=== PATIENT | male | born 1990 | race African-American/Black ===

== ENCOUNTER 2022-07-03 14:41 | Emergency (ER) | payer BC, OTHER ==
[2022-07-03 14:47] VITALS: BP 163/106; PULSE 86; RESP 18; TEMP 97.7; BMI 36.9
[2022-07-03] MEDS ORDERED: KETOROLAC TROMETHAMINE 30 MG/1 ML VIAL IM ONE (15:27)
[2022-07-03] MEDS ORDERED: AMOXICILLIN 500 MG CAPSULE (FP) PO ONE (15:27)
[2022-07-03] MEDS ORDERED: ACETAMINOPHEN WITH CODEINE 300MG/30MG TABLET PO ONE (15:28)
[2022-07-03] MEDS ORDERED: AMOXICILLIN 250 MG CAPSULE ONE (15:48)
[2022-07-03] MEDS ORDERED: KETOROLAC TROMETHAMINE 30 MG/1 ML VIAL ONE (15:48)
[2022-07-03] MEDS ORDERED: ACETAMINOPHEN WITH CODEINE 300MG/30MG TABLET ONE (15:49)
== END 2022-07-03 16:35 | disposition home or self-care (01) ==
LOC: JERFT 14:41 → JER 14:41 → JERFT 16:35
PROC: 3E023GC Introduction of Other Therapeutic Substance into Muscle, Percutaneous Approach (ICD-10-PCS; principal; 2022-07-03)
DX: K08.89 Other specified disorders of teeth and supporting structures (principal)
CPT/HCPCS: 99284-25

== ENCOUNTER 2023-11-20 12:56 | Inpatient (IN) | payer OTHER ==
[2023-11-20] MEDS ORDERED: ACETAMINOPHEN INJECTION 100 ML IVPB ONE ×2 (14:41→20:39)
[2023-11-20 14:44] LABS: BASO % 0.3 % (0-2.0); EOS % 1.6 % (0-4.5); HEMATOCRIT 46.9 % (35.4-49); LYMPH % 13.8 % (8-40); MCH 28.9 pg (25.7-33.7); MEAN CELL VOLUME 85.1 fl (80-96); MEAN PLT VOLUME 7.5 fl (7.5-11.1); MONO % 7.1 % (3.8-10.2); NEUT % 77.2 % (42.8-82.8); PLATELET COUNT 206 10^3/uL (134-434); RBC 5.51 M/mm3 (4.00-5.60); RDW 13.6 % (11.9-15.9); WHITE BLOOD COUNT 7.7 K/mm3 (4.0-10.0)
[2023-11-20 14:45] LABS: INR 1.06 (0.83-1.09); PROTHROMBIN TIME (PATIENT) 12.3 SEC (9.7-13.0)
[2023-11-20] MEDS: morphine CARPU-JECT 2 MG/1 ML DISP.SYRIN IVPUSH ONE (14:45)
[2023-11-20 15:00] LABS: POTASSIUM 4.1 mmol/L (3.5-5.1)
[2023-11-20 15:03] LABS: ALBUMIN 4.2 g/dl (3.4-5.0); CALCIUM 9.4 mg/dL (8.5-10.1)
[2023-11-20 15:07] LABS: CREATININE 1.2 mg/dL (0.55-1.3)
[2023-11-20 15:09] LABS: BILIRUBIN,TOTAL 0.8 mg/dL (0.2-1); TOT PROT 8.1 g/dl (6.4-8.2)
[2023-11-20 15:22] LABS: ERYTHROCYTE SEDIMENTATION RATE 6 mm/hr (0-10)
[2023-11-20] MEDS ORDERED: PIPERACILLIN/TAZOB 4.5 GM 4.5 GM/100 ML BAG IVPB ONE (16:19)
[2023-11-20] MEDS: PIPERACILLIN/TAZOB 4.5 GM 4.5 GM in DEXTROSE 5%-WATER 100 ML IVPB ONE (16:47)
[2023-11-20] MEDS ORDERED: VANCOMYCIN 1 GRAM (PRE-DOCKED) 1,000 MG/250 ML BAG IVPB ONE (17:18)
[2023-11-20] MEDS: VANCOMYCIN 1,000 MG in DEXTROSE 5%-WATER - 250 ML IVPB ONE (17:27)
[2023-11-20] MEDS ORDERED: ACETAMINOPHEN 325 MG TABLET (FP) PO PRN (19:09)
[2023-11-20] MEDS: ACETAMINOPHEN 1000 MG/100 ML BAG IVPB ONE (20:59)
[2023-11-21 07:32] LABS: HEMATOCRIT 44.7 % (35.4-49); HEMOGLOBIN 15.3 GM/dL (11.7-16.9); MCHC 34.1 g/dl (32.0-35.9); MEAN CELL VOLUME 85.1 fl (80-96); PLATELET COUNT 186 10^3/uL (134-434); RBC 5.25 M/mm3 (4.00-5.60); RDW 13.6 % (11.9-15.9); WHITE BLOOD COUNT 6.2 K/mm3 (4.0-10.0)
[2023-11-21 07:44] LABS: POTASSIUM 3.9 mmol/L (3.5-5.1)
[2023-11-21 07:45] LABS: CALCIUM 8.7 mg/dL (8.5-10.1)
[2023-11-21 07:46] LABS: BLOOD UREA NITROGEN 15.7 mg/dL (7-18); MAGNESIUM 2.1 mg/dL (1.8-2.4)
[2023-11-21 07:49] LABS: CREATININE 1.1 mg/dL (0.55-1.3); PHOSPHOROUS 3.9 mg/dL (2.5-4.9); URIC ACID 4.6 mg/dL (2.6-7.2)
[2023-11-21 08:34] LABS: ALBUMIN 3.8 g/dl (3.4-5.0)
[2023-11-21 08:36] LABS: BILIRUBIN,DIRECT 0.1 mg/dL (0.0-0.2)
[2023-11-21 08:38] LABS: BILIRUBIN,TOTAL 0.8 mg/dL (0.2-1); TOT PROT 7.3 g/dl (6.4-8.2)
[2023-11-21 10:01] VITALS: RESP 18
[2023-11-21] MEDS: DOXYCYCLINE HYCLATE 100 MG CAPSULE PO SCH (11:00)
[2023-11-21] MEDS: KETOROLAC TROMETHAMINE 15 MG/ML VIAL IVPUSH PRN (12:09)
[2023-11-21 13:42] VITALS: BMI 38.2
[2023-11-21] MEDS: NYSTATIN 100,000 UNIT/GM TOPICAL CREAM 15 GM TUBE TP SCH (14:00)
[2023-11-21] MEDS: CEFTRIAXONE 2 GM in DEXTROSE 5%-WATER 100 ML IVPB SCH (16:29)
[2023-11-21] MEDS: ENOXAPARIN NA (PORCINE) 40 MG/0.4 ML DISP.SYRIN SQ SCH (16:30)
[2023-11-21] MEDS: VANCOMYCIN PREMIX 1.5 GM 1,500 MG/300 ML BAG IVPB SCH (16:30)
[2023-11-22 09:08] LABS: POTASSIUM 4.2 mmol/L (3.5-5.1)
[2023-11-22 09:10] LABS: CALCIUM 9.3 mg/dL (8.5-10.1)
[2023-11-22 09:11] LABS: ALBUMIN 3.7 g/dl (3.4-5.0); BLOOD UREA NITROGEN 18.8 mg/dL (7-18)
[2023-11-22 09:14] LABS: BILIRUBIN,TOTAL 1.1 mg/dL (0.2-1); CREATININE 1.2 mg/dL (0.55-1.3); TOT PROT 7.4 g/dl (6.4-8.2)
[2023-11-22 09:15] LABS: HEMATOCRIT 46.5 % (35.4-49); HEMOGLOBIN 15.8 GM/dL (11.7-16.9); MCH 28.9 pg (25.7-33.7); MEAN CELL VOLUME 84.9 fl (80-96); MEAN PLT VOLUME 7.8 fl (7.5-11.1); PLATELET COUNT 192 10^3/uL (134-434); RBC 5.47 M/mm3 (4.00-5.60); RDW 13.4 % (11.9-15.9); WHITE BLOOD COUNT 5.7 K/mm3 (4.0-10.0)
[2023-11-22 14:15] LABS: BILIRUBIN,DIRECT 0.2 mg/dL (0.0-0.2)
[2023-11-23 09:16] LABS: HEMATOCRIT 45.3 % (35.4-49); HEMOGLOBIN 15.2 GM/dL (11.7-16.9); MCH 28.5 pg (25.7-33.7); MCHC 33.5 g/dl (32.0-35.9); MEAN CELL VOLUME 85.1 fl (80-96); MEAN PLT VOLUME 7.8 fl (7.5-11.1); PLATELET COUNT 186 10^3/uL (134-434); RBC 5.32 M/mm3 (4.00-5.60); RDW 13.2 % (11.9-15.9)
[2023-11-23 09:46] LABS: ALBUMIN 3.6 g/dl (3.4-5.0); BLOOD UREA NITROGEN 20.8 mg/dL (7-18); MAGNESIUM 2.3 mg/dL (1.8-2.4)
[2023-11-23 09:48] LABS: CREATININE 1.2 mg/dL (0.55-1.3)
[2023-11-23 09:51] LABS: BILIRUBIN,TOTAL 1.1 mg/dL (0.2-1); TOT PROT 7.4 g/dl (6.4-8.2)
[2023-11-24 09:15] LABS: HEMATOCRIT 48.5 % (35.4-49); MCH 28.2 pg (25.7-33.7); MCHC 32.9 g/dl (32.0-35.9); MEAN CELL VOLUME 85.6 fl (80-96); MEAN PLT VOLUME 7.6 fl (7.5-11.1); PLATELET COUNT 208 10^3/uL (134-434); RBC 5.67 M/mm3 (4.00-5.60); RDW 13.4 % (11.9-15.9); WHITE BLOOD COUNT 6.1 K/mm3 (4.0-10.0)
[2023-11-24 09:44] LABS: POTASSIUM 4.1 mmol/L (3.5-5.1)
[2023-11-24 09:51] LABS: ALBUMIN 3.9 g/dl (3.4-5.0)
[2023-11-24 09:52] LABS: BLOOD UREA NITROGEN 17.9 mg/dL (7-18)
[2023-11-24 09:53] LABS: CALCIUM 9.2 mg/dL (8.5-10.1); CREATININE 1.2 mg/dL (0.55-1.3); MAGNESIUM 2.3 mg/dL (1.8-2.4)
[2023-11-24 09:55] LABS: BILIRUBIN,TOTAL 1.4 mg/dL (0.2-1); TOT PROT 7.9 g/dl (6.4-8.2)
[2023-11-24 13:44] VITALS: BP 154/90; PULSE 70; TEMP 98
[2023-11-24] MEDS: amLODIPine BESYLATE 5 MG TABLET (FP) PO SCH (14:30)
== END 2023-11-24 15:55 | disposition home or self-care (01) | DRG 383 ==
LOC: JER 12:56 → JERBED 18:45 → J8W 11-21 10:12 → OBSVTOIN 11-22 12:53
PROVIDERS: ADMIT Internal Medicine; ATTEND Internal Medicine
DX: L03.116 Cellulitis of left lower limb (principal); I10 Essential (primary) hypertension; B35.3 Tinea pedis; E66.9 Obesity, unspecified; F17.210 Nicotine dependence, cigarettes, uncomplicated; L97.529 Non-pressure chronic ulcer of other part of left foot with unspecified severity; R79.89 Other specified abnormal findings of blood chemistry; R74.01 Elevation of levels of liver transaminase levels
CPT/HCPCS: 36415; 71046-TC-FY; 73630-TC-LT; 73700-TC-RT; 73718-TC-LT; 76700-TC; 80048; 80053; 80076; 82248; 82550; 82553; 83735; 84100; 84550; 85025; 85027; 85610; 85651; 86140; 86704; 86708; 86803; 87040; 87070; 87186; 87205; 87340; 87517; 93005; 93010; 99285-25; G0378; G0480; J0131